=== PATIENT | female | born 2005 | race African-American/Black ===

== ENCOUNTER 2025-10-05 13:25 | Emergency (ER) | payer MEDICAID ==
[~2025-10-05] VITALS: Ht 180.3 cm; Wt 70.0 kg
[2025-10-05 13:38] VITALS: O2SAT 100
[2025-10-05 13:42] VITALS: BP 106/72; PULSE 81; RESP 18; TEMP 36.7; O2SAT 100
[2025-10-05 16:22] VITALS: TEMP 98.1
[2025-10-05] MEDS: ACETAMINOPHEN 325MG TABLET PO ONE (16:22)
[2025-10-05 16:57] LABS: CLARITY URINE CLEAR (CLEAR); COLOR URINE YELLOW (YELLOW); GLUCOSE URINE NEGATIVE (NEGATIVE); KETONES URINE TRACE (NEGATIVE); LEUKOCYTE ESTERASE URINE NEGATIVE (NEGATIVE); NITRITE URINE NEGATIVE (NEGATIVE); OCCULT BLOOD URINE NEGATIVE (NEGATIVE); PH URINE 5.5 (4.5-8.0); PROTEIN URINE NEGATIVE (NEGATIVE); SPECIFIC GRAVITY URINE 1.017 (1.005-1.030); UROBILINOGEN URINE 0.2 E.U./dL (0.2-1.0)
[2025-10-05 16:57] LABS: BASOPHILS % 0.6 % (0.0-2.0); EOSINOPHILS % 1.9 % (0.0-5.0); HEMATOCRIT. 34.9 % (36.0-48.0); HEMOGLOBIN. 11.4 g/dL (12.0-16.0); LYMPHOCYTES % 33.6 % (20.0-50.0); MEAN PLATELET VOLUME 9.2 fl (7.4-10.4); MONOCYTES % 14.2 % (2.0-8.0); NEUTROPHILS % 49.7 % (40.0-76.0); PLATELET 195 x1000/uL (130-400); RED BLOOD CELL COUNT 3.95 mill/uL (4.2-5.4); RED CELL DISTRIBUTION WIDTH 14.3 % (11.6-14.6)
[2025-10-05 17:12] LABS: CREATININE 0.7 mg/dL (0.6-1.0); HCG SCREEN NEGATIVE
[2025-10-05 17:13] LABS: PROTEIN TOTAL 7.6 g/dL (6.0-8.3); UREA NITROGEN BLOOD 6 mg/dL (9-23)
[2025-10-05 17:14] LABS: ASPARTATE AMINOTRANSFERASE 14 IU/L (<34)
[2025-10-05 17:15] LABS: BILIRUBIN DIRECT 0.3 mg/dL (<=3.0); BILIRUBIN TOTAL 1.3 mg/dL (0.1-1.0)
== END 2025-10-05 19:33 | disposition home or self-care (01) ==
LOC: ER 13:25
DX: R10.13 Epigastric pain (principal); T18.9XXA Foreign body of alimentary tract, part unspecified, initial encounter
CPT/HCPCS: 36415; 74176; 80048; 80076; 81003; 84703; 85025; 99284